=== PATIENT | male | born 1945 | race Caucasian/White ===

== ENCOUNTER → 2019-05-20 13:13 | Outpatient (BNVA) | payer MEDICARE, SELFPAY | PROVIDERS: Family Provider Family Medicine; Referring Provider Family Medicine; Visit Provider Orthopaedic Surgery | DX: M25.512 Pain in left shoulder (principal) | CPT/HCPCS: 73030 ==

== ENCOUNTER 2019-06-30 10:45 | Outpatient (CLI) | payer MEDICARE, SELFPAY ==
--- NOTE | 2019-06-30 11:45 | MR_ITS ---
WS: [id number] MRI left shoulder, 06/30/2019 Clinical Data: tendinopathy of left rotator cuff Comparison: None. Findings: There is a rotator cuff tear with retraction of the supraspinatus and infraspinatus tendons. There is a tear in the substance of the biceps tendon. But no displacement or retraction is seen. There is al so a tear in the superior anterior lateral aspect of the glenoid labrum. The posterior aspect of the glenoid labrum is normal. The AC joint shows osteoarthritic change with impingement of the acromium o n the humeral head. MR/MR shoulder LT wo con* [id number] Impression: 1. Complete rotator cuff tear of the left shoulder with retraction of the supra spinatus and infraspinatus tendons. 2. Tear in the substance of the biceps tendon. 3. Superior anterior labral tear without displacement. 4. Osteoarthritis of the left AC joint.
== END 2019-06-30 10:46 | disposition home or self-care (01) ==
LOC: RADSHAW 10:45
PROVIDERS: Family Provider Family Medicine; PCP Family Medicine; Visit Provider Orthopaedic Surgery
DX: M75.122 Complete rotator cuff tear or rupture of left shoulder, not specified as traumatic (principal); M67.912 Unspecified disorder of synovium and tendon, left shoulder; S46.212A Strain of muscle, fascia and tendon of other parts of biceps, left arm, initial encounter; X58.XXXA Exposure to other specified factors, initial encounter; M19.012 Primary osteoarthritis, left shoulder
CPT/HCPCS: 73221

== ENCOUNTER 2019-07-16 05:31 | Day surgery (SDC) | payer MEDICARE, SELFPAY ==
[2019-07-15 13:48] VITALS: BMI 30.2
[2019-07-16] VITALS (13 sets, daily range): BP systolic 111–172; BP diastolic 57–96; PULSE 54–76; RESP 9–25; TEMP 36.1–37.2; O2SAT 92–98
[2019-07-16] MEDS: sodium chloride 0.9% 1,000 ML 30 ML IV (06:35)
[2019-07-16 06:40] LABS: Glucose Point of Care 123 mg/dL (70-110)
--- NOTE | 2019-07-16 06:42 | ANES.PREANE2 ---
Pre-Anesthetic Assessment Pre-Anesthetic Assessment: Height/Weight: Height 1.8 m Weight 98.43 kg Temp Pulse Resp BP Pulse Ox 98.5 F 59 L 18 142/86 96 07/16/19 06:17 07/16/19 06:17 07/16/19 06:17 07/16/19 06:17 07/16/19 06:17 Preop Diagnosis: Left rotator cuff tear Proposed Procedure: Operation Date: 07/16/19 07:50 Proposed Procedures p Shoulder Arthroscopy Left 68451 M75.102 M75.42(Left) - Ramone Traylor MD s Rotator Cuff Repair with Subcromial Decompression 58959 M19.012(Left) - Ramone Traylor MD s Poss Bicep Tenodesis 67041 S46.212A(Left) - Ramone Traylor MD Last intake: Intake Last Liquid Date 07/15/19 Last Liquid Time 11:00 Last Solid Date 07/15/19 Last Solid Time 11:00 Social: Social History: Tobacco Packs per day: 3 Pack years: >100 Exam: Pre-Anes Outpt Exam: alert, oriented x 3, clear to auscultation bilaterally and regular rate & rhythm CV/HEM: CV/HEM: CAD and HTN Comments: rx'd x 20y stent ' stress test '15 negative : : None reported Metabolic: Metabolic: DM Comments: rx'd x 15y, normally 90-140 Musc/skel: Musc/skel: Lower Back Pain Comments: nonradiating Anesthetic Plan: ASA status: 3 Anesthesia: General and Regional (specify below) Meds/Allergies Current Medications: Current Medications Generic Name Dose Route Start Last Admin Trade Name Jarrett PRN Reason Stop Dose Admin Sodium Chloride 1,000 mls @ 30 ml s/hr 07/16/19 06:00 07/16/19 06:35 Sodium Chloride 0.9% IV 07/17/19 05:59 30 mls/hr .Q24H DARY Administration PFSH Anesthesia PFSH: Social History Smoking and tobacco status: former smoker Alcohol intake: current Alcohol intake frequency: 0-2 Drinks per Day Data Anesthesia Other Labs: Laboratory Results - last 48 hr 07/16/19 06:34 POC Glucose 123 Cardiac Studies: No Data to Display
[2019-07-16] MEDS: midazolam 1 mg/mL INJ 5 ML 5 MG IVP (06:55)
[2019-07-16] MEDS: fentaNYL 50 mcg/mL INJ 2mL 100 MCG IVP (06:56)
--- NOTE | 2019-07-16 07:01 | P.HPUD_ITS ---
Surgery/Procedure H&P Update DATE OF PROCEDURE: July 16, 2019 DATE H&P PERFORMED: 07/03/19 PREOP DIAGNOSIS: Left rotator cuff tear PLANNED PROCEDURE: Operation Date: 07/16/19 07:50 Proposed Procedures p Shoulder Arthroscopy Left 80312 M75.102 M75.42(Left) - MD charli Giraldo Rotator Cuff Repair with Subcromial Decompression 32059 M19.012(Left) - Ramone Trayolr MD s Poss Bicep Tenodesis 88751 S46.212A(Left) - Ramone Traylor MD
--- NOTE | 2019-07-16 07:01 | W.PM.OPSUD ---
Surgery/Procedure H&P Update DATE OF PROCEDURE: July 16, 2019 DATE H&P PERFORMED: 07/03/19 PREOP DIAGNOSIS: Left rotator cuff tear PLANNED PROCEDURE: Operation Date: 07/16/19 07:50 Proposed Procedures p Shoulder Arthroscopy Left 74193 M75.102 M75.42(Left) - MD charli Giraldo Rotator Cuff Repair with Subcromial Decompression 04830 M19.012(Left) - Ramone Traylor MD s Poss Bicep Tenodesis 21124 S46.212A(Left) - Ramone Traylor MD
--- NOTE | 2019-07-16 07:09 | ANES.PROC ---
Anesthesia Procedures Procedure/Date: 07/16/19 Left innerscalene Block Procedure Narrative: R&B's of left innerscalene block for postop pain mx following left RTCR disc'd. Verbal and written consent obtained. Versed 2+1+1+1mg, Fentanyl 50ug. US utilized to identify left innerscalene space, KATIE. Nerve stimulator at 0.6mAMPS. 30cc of Ropvicaine 0.5%+Lido2% with epi in 3:1 in 5cc increments without problems/complications Nerve Block ^: Nerve Block 1: Main Anesthesia: general anesthesia Time Out Performed: Yes Consent: requested by attending/covering physician, from patient, risks and benefits reviewed and patient agrees to proceed Nerve block location: interscalene Anesthetic Used: lidocaine 2%, ropivicaine 0.5% and with epi Amount of anesthesia used (mL): 30 Ultrasound used to: recognize landmarks and visualize and ID interscalene groove Nerve Stimulator Used?: Yes Interscalene/Femoral BLK: 2 stimuplex 22 g needle used for position and inplane approach, visualize local anesthetic spread and no vascular puncture identified Injection: neg aspiration of heme and paresthesia +/- Patient Tolerated Procedure: well and no complications Complications: none
--- NOTE | 2019-07-16 11:01 | P.OP_ITS ---
Operative Report Date of procedure: July 16, 2019 Pre-op Diagnosis: Left rotator cuff tear Post-op diagnosis: same Post-op Findings: Retracted tear left rotator cuff, impingement, tear left biceps Procedure Done: Arthroscopic left rotator cuff repair with bio inductive implant, arthroscopic left subacromial decompression, rthroscopic left biceps tenodesed Pathology: none sent Anesthesia: General and Nerve Block (Interscalene) Estimated blood loss (mL): 25 Complications: None Findings: The patient had a retracted tear of the supraspinatus tendon with retraction of the tendon to the glenoid. He had tearing of his biceps with degeneration at its insertion on the superior labrum and he wanted to know split in the proximal biceps. He had prominent anterior spurring of his acromion. Condition: stable Disposition: PACU Procedure: The patient was taken to the operating room after he was given an interscalene block. He was given 2 g of Ancef. He was positioned in the lateral position with his left arm in 15 pounds of traction. A timeout was performed. The shoulder was entered through a posterior portal made 2 cm in ferior medial to the posterior corner of the acromion. The scope cannula and trocar were driven into the glenohumeral joint. The large tear of the rotator cuff was identified. Degeneration of the biceps attachment of the longus to the split in the biceps was encountered. Large subacromial spurs were identified. The scope was then moved to the subacromial space. An anterior lateral working portal opened up with a scalpel blade and large cannulas are placed through both those for later work. Initial attention was paid to the acromion. Using a 5 5 acromionizer approximately 6 mm of anterior and inferior acromion were removed to eliminate impingement of the rotator cuff and make room for future repairs. Attention was then focused on the biceps. Through the anterior portal the biceps could be mobilized out of the bicipital groove. An incisor shaver was introduced from the lateral portal debriding the visible bicipital groove. Through a lateral stab wound a [employer] Q fix anchor was placed. Sutures were passed around the biceps in a luggage tag fashion and secured repairing the biceps to the bicipital groove. A second Q fix anchor was placed approximately a centimeter proximal reinforce the repair. The biceps was detached from its insertion on the superior labrum with the Dum[employer]hew Werewolf probe and the remaining biceps removed to the level of the tenodesis. Attention was then focused on the rotator cuff. Utilizing the [employer] Werewolf probe bursal and articular adhesions of the supraspinatus tendon were released. At the conclusion the supraspinatus could be brought back to its medial footprint The footprint was debrided back to the vascular bone. Through a lateral stab wound a 5.5 mm helical anchor was placed. Limb of suture was pa ssed through the cuff doubled over and used to fashion a luggage tag stitch controlling the posterior cuff. A second anchor was placed anteriorly. The 2 limbs of Ultratape were passed through the cuff approximately a centimeter apart and approximately 6 mm from the edge of the cuff. The Ultrabraid was passed in the central and slightly more medial position. Initially the ultra tape sutures were secured with the ultra braid secured secondly in a modified Shaw type of stitch. A luggage tag stitch was then secured posteriorly bringing the posterior cuff to bone. Next a [employer]hew Regeneten implant was placed through a inferior and more anterior portal. It was fixed laterally with 3 bone elijah medially anteriorly and posteriorly with soft tissue elijah further reinforcing the repair. The shoulder was irrigated with saline. Portals were closed with 3-0 Prolene. Sterile dressings were applied. The patient was placed in an abduction pillow, extubated, and taken recovery room in stable condition.
--- NOTE | 2019-07-16 11:14 | SUR.PHASEI ---
1111 PATIENT TO PACU AT THIS TIME FROM OR. RR EVEN AND UNLABORED. ORAL AIRWAY IN PLACE, PLACED ON SIMPLE MASK AT 8L, SPO2 94%. DRESSING INTACT TO LEFT SHOULDER WITH SLING IN PLACE. PATIENT NOTED TO BE SLEEPING.
--- NOTE | 2019-07-16 11:30 | SUR.PHASEI ---
1130 ORAL AIRWAY REMOVED AT THIS TIME. PATIENT REMAINS ON SIMPLE MASK AT 12L, SPO2 96%
--- NOTE | 2019-07-16 11:54 | SUR.PHASEI ---
1151 PATIENT TO OPS AT THIS TIME. RR EVEN AND UNLABORED. DRESSING INTACT TO LEFT SHOULDER, CDI WITH SLING IN PLACE
== END 2019-07-16 13:30 | disposition home or self-care (01) ==
PROVIDERS: Family Provider Family Medicine; PCP Family Medicine; Visit Provider Orthopaedic Surgery
PROC: (CPT 29805; principal; 2019-07-16 07:50)
PROC: (CPT 29826; 2019-07-16 07:50)
PROC: (CPT 23430; 2019-07-16 07:50)
DX: M75.102 Unspecified rotator cuff tear or rupture of left shoulder, not specified as traumatic (principal); M75.42 Impingement syndrome of left shoulder; M19.012 Primary osteoarthritis, left shoulder; S46.212A Strain of muscle, fascia and tendon of other parts of biceps, left arm, initial encounter; X58.XXXA Exposure to other specified factors, initial encounter; F17.210 Nicotine dependence, cigarettes, uncomplicated; I25.10 Atherosclerotic heart disease of native coronary artery without angina pectoris; I10 Essential (primary) hypertension; Z95.1 Presence of aortocoronary bypass graft; E11.9 Type 2 diabetes mellitus without complications; Z79.82 Long term (current) use of aspirin; Z79.84 Long term (current) use of oral hypoglycemic drugs
CPT/HCPCS: 29826; 29827; 29828; 12345; 36416; 82962; 96374; 96375; C1713; J1100; J2001; J2250; J2370; J2405; J2704; J2795; J3010; J3490; J7030

== ENCOUNTER → 2020-01-15 08:15 | Outpatient (BNVA) | payer MEDICARE, SELFPAY | PROVIDERS: Family Provider Family Medicine; PCP Family Medicine; Referring Provider Family Medicine; Visit Provider Anesthesiology Pain Medicine | DX: M47.816 Spondylosis without myelopathy or radiculopathy, lumbar region (principal); M51.36 Other intervertebral disc degeneration, lumbar region; M51.17 Intervertebral disc disorders with radiculopathy, lumbosacral region; M67.411 Ganglion, right shoulder; M54.9 Dorsalgia, unspecified | CPT/HCPCS: 99203; 99204 ==